=== PATIENT | male | born 1970 | race Caucasian/White ===

== ENCOUNTER 2021-02-16 16:33 | Emergency (ER) | payer OTHER ==
--- OUTSIDE RECORDS SUMMARY | 2021-02-16 16:37 | XMS REPORT | Continuity of Care Document ---
:1970 Author Organization [facility] t Address [address] [place] [address] [address] [place] [address] Care Team Providers Name Role Phone PURA Attending Clinician Unavailable MD Ibrahima NEVES Attending Clinician Unavailable [place] Attending Clinician Unavailable HENRY Attending Clinician Unavailable MD Ibrahima NEVES Admitting Clinician Unavailable Problems This patient has no known problems. Allergies, Adverse Reactions, Alerts This patient has no known allergies or adverse reactions. Medications This patient has no known medications. Procedures This patient has no known procedures. Encounters Start End Encounter Admission Attending Care Care Encounter Source Date/Time Date/Time Type Type Clinicians Facility Department ID 2021-02-16 2021-02-16 Outpatient [facility] [id number] [place] 00:00:00 00:00:[address] 2020-12-15 2020-12-15 [place] [id number] [place] 00:00:00 00:00:00 ANKUR [address] 2020-11-07 2020-11-07 [facility] [id number] [place] 00:00:00 00:00:00 ANKUR [address] 2020-11-07 2020-11-07 [place] [id number] [place] 00:00:00 00:00:00 ANKUR [address] 2020-10-04 2020-10-04 [facility] [id number] [place] 00:00:00 00:00:00 BROWN [address] 2020-09-21 2020-09-21 [facility] [id number] [place] 00:00:00 00:00:00 ANKUR [address] 2020-09-13 2020-09-13 Outpatient [place], [facility] [id number] [place] 00:00:00 00:00:00 ANKUR [address] 2020-06-28 2020-06-28 Outpatient [place], [facility] [id number] [place] 00:00:00 00:00:00 ANKUR [address] 2020-06-14 2020-06-14 Outpatient [place], [facility] [id number] [place] 00:00:00 00:00:00 ANKUR [address] 2020-06-07 2020-06-07 Outpatient [place], [facility] [id number] [place] 00:00:00 00:00:00 BROWN [address] 2020-05-09 2020-05-09 Outpatient [place], [facility] [id number] [place] 00:00:00 00:00:00 DEMETRI [address] 2020-05-04 2020-05-04 Outpatient [place], [facility] [id number] [place] 00:00:00 00:00:00 DEMETRI [address] 2020-04-07 2020-04-07 Outpatient BR[place], [facility] [id number] [place] 00:00:00 00:00:00 DEMETRI [address] 2020-03-28 2020-03-28 Outpatient BR[place], [facility] [id number] [place] 00:00:00 00:00:00 DEMETRI [address] 2020-03-28 2020-03-28 Outpatient BROWN, [facility] [id number] [place] 00:00:00 00:00:00 DEMETRI [address] 2020-03-16 2020-03-16 Outpatient [place], [facility] [id number] [place] 00:00:00 00:00:[address] ANKUR [address] 2020-03-04 2020-03-04 Outpatient BROWN, [facility] [id number] [place] 00:00:00 00:00:00 DEMETRI [address] 2020-03-04 2020-03-04 Outpatient [facility] [id number] [place] 00:00:00 00:00:[address] 2020-03-02 2020-03-02 Outpatient [place], [facility] [id number] [place] 00:00:00 00:00:00 ANKUR [address] 2020-02-01 2020-02-01 Outpatient [place], [facility] [id number] [place] 00:00:00 00:00:00 BROWN [address] 2019-10-03 2019-10-03 Outpatient [place], [facility] [id number] [place] 00:00:00 00:00:00 ANKUR [address] 2019-07-28 2019-07-28 Outpatient [place], [facility] [id number] [place] 00:00:00 00:00:00 BROWN [address] Results Test Description Test Time Test Comments Results Result Comments Source SARS-CoV-2 (COVID-19) RNA [Presence] in Respiratory sp ecimen by 2020-11-07 21:41:02 ITALIA with probe detection Test Item Value Reference Range Interpretation Comme nts SARS-CoV-2 (COVID-19) RNA [Presence] in Respiratory Not detected No t-Detected specimen by ITALIA with probe detection (test code = 57605-5) 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
[2021-02-16] MEDS ORDERED: LIDOCAINE 1% 20 ML MDV ONE (20:10)
[2021-02-16] MEDS ORDERED: TETANUS & DIPHTHERIA TOX,ADULT 0.5 ML VIAL ONE (20:11)
--- NOTE | 2021-02-16 20:30 | EDPHYS ---
Physician Documentation [facility] Name: Petar Nuñez Jr Age: 51 yrs Sex: Male : 1970 Arrival Date: 02/16/2021 Time: 16:37 Bed 11 Private MD: ED Physician Urbano Eduardo HPI: 02/17 01:26 This 51 yrs old Male presents to ER via Ambulatory with complaints of Thumb Laceration. kb 01:26 The patient has a laceration related to: cooking, from a knife, occurred at home, and kb there are no complicating factors. The injury was accidental. The laceration(s) is(are) located on the dorsal aspect of proximal phalanx of left thumb. Onset: The symptoms/episode began/occurred just prior to arrival. Associated signs and symptoms: The patient has no apparent associated signs or symptoms. The patient has not experienced similar symptoms in the past. The patient has not recently seen a physician. Pt reports he was cutting an orange and accidentally cut his thumb. Historical: - Allergies: 02/16 17:40 Erythromycin; ss - Immunization history:: Client reports receiving the 2nd dose of the Covid vaccine, Last tetanus immunization: unknown. - Social history:: Smoking status: Patient denies any tobacco usage or history of. ROS: 02/17 01:25 Constitutional: Negative for fever, chills, and weight loss. kb Skin: Positive for laceration(s), of the dorsal aspect of proximal phalanx of left thumb. All other systems are negative. Exam: 01:25 Constitutional: This is a well developed, well nourished patient who is awake, alert, kb and in no acute distress. Head/Face: Normocephalic, atraumatic. ENT: Moist Mucous membranes Respiratory: Respirations even and unlabored. No increased work of breathing. Talking in full sentences MS/ Extremity: Pulses equal, no cyanosis. Neurovascular intact. Full, normal range of motion. Neuro: Awake and alert, GCS 15, oriented to person, place, time, and situation. Moves all extremities. Normal gait. Psych: Awake, alert, with orientation to person, place and time. Behavior, mood, and affect are within normal limits. 01:25 Skin: injury, laceration(s), the wound is approximately 1.5 cm(s), of the dorsal aspect of proximal phalanx of left thumb, that can be described as clean, no foreign body, irregular, without bleeding. Vital Signs: 02/16 17:36 BP 137 / 94; Pulse 76; Resp 16; Temp 98.0(TE); Pulse Ox 99% on R/A; Weight 106.59 kg; ss Height 6 ft. 3 in. (190.50 cm); Pain 3/10; 17:36 Body Mass Index 29.37 (106.59 kg, 190.50 cm) ss Laceration: 20:29 Wound Repair of 1.5cm ( 0.6in ) subcutaneous laceration to dorsal aspect of proximal kb phalanx of left thumb. Irregularly shaped.. Skin/tissue flap noted.. Distal neuro/vascular/tendon intact. Anesthesia: Wound infiltrated with 1 mls of 1% lidocaine. Wound prep: Extensive cleansing with hibiclenz by me, Wound irrigation with saline by me. Skin closed with 3 5-0 Prolene using simple sutures and sterile technique. Patient tolerated well. MDM: 17:47 Patient medically screened. kb 20:29 Data reviewed: vital signs, nurses notes. Data interpreted: Pulse oximetry: on room air kb is 99 %. Interpretation: normal. Counseling: I had a detailed discussion with the patient and/or guardian regarding: the historical points, exam findings, and any diagnostic results supporting the discharge/admit diagnosis, the need for outpatient follow up, a family practitioner, to return to the emergency department if symptoms worsen or persist or if there are any questions or concerns that arise at home. 02/16 19:42 Order name: Dressing - Wound; Complete Time: 20:44 kb 02/16 19:42 Order name: Gloves, Sterile; Complete Time: 20:44 kb 02/16 19:42 Order name: Prolene, Sutures; Complete Time: 20:44 kb 02/16 19:42 Order name: Setup Suture Tray; Complete Time: 20:44 kb Administered Medications: 20:16 Drug: Tetanus-Diphtheria Toxoid Adult 0.5 ml {Prop Drawer: [employer]. Exp: lp1 07/08/2022. Lot #: [id number]. } Route: IM; Site: right deltoid; 20:40 Follow up: Response: No adverse reaction lp1 20:17 Drug: Lidocaine (1 %) 1 vials Volume: 5 ml; Route: Infiltration; lp1 Disposition Summary: 02/16/21 20:30 Discharge Ordered Location: Home kb Condition: Stable kb Diagnosis - Laceration without foreign body of left thumb without damage to nail kb Followup: kb - With: Emergency Department - When: As needed - Reason: Worsening of condition Followup: kb - With: Private Physician - When: 2 - 3 days - Reason: Recheck today's complaints, Continuance of care, Re-evaluation by your physician Discharge Instructions: - Discharge Summary Sheet kb - Laceration Care, Adult, Gaau-yx-Volm kb Forms: - Medication Reconciliation Form kb - Thank You Letter kb - Antibiotic Education kb - Prescription Opioid Use kb Addendum: 02/21/2021 13:12 Co-signature as Attending Physician, Urbano Eduardo MD I agree with the assessment and k dr plan of care. Signatures: Denita Perkins, SYSTEMS COORDINATOR-C SYSTEMS COORDINATOR-Ckb Urbano Eduardo MD MD [facility] Jerri Juarez, RN RN Martha Zimmer, RN RN lp1
--- NOTE | 2021-02-16 20:30 | ER ---
Nurse's Notes [facility] Name: Petar Nuñez Jr Age: 51 yrs Sex: Male : 1970 Arrival Date: 02/16/2021 Time: 16:37 Bed 11 Private MD: Diagnosis: Laceration without foreign body of left thumb without damage to nail Presentation: 02/16 17:36 Chief complaint: Patient states: Laceration to L thumb that occurred 1.5 hours ago. 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 Coronavirus screen: Client denies travel out of the [place] in the last 14 days. Ebola Screen: Patient denies exposure to infectious person. Patient denies travel to an Ebola-affected area in the 21 days before illness onset. Initial Sepsis Screen: Does the patient meet any 2 criteria? No. Patient's initial sepsis screen is negative. Does the patient have a suspected source of infection? No. Patient's initial sepsis screen is negative. Risk Assessment: Do you want to hurt yourself or someone else? Patient reports no desire to harm self or others. Onset of symptoms was February 16, 2021. 17:36 Method Of Arrival: Ambulatory ss 17:36 Acuity: RAVIN 4 ss Historical: - Allergies: 17:40 Erythromycin; ss - Immunization history:: Client reports receiving the 2nd dose of the Covid vaccine, Last tetanus immunization: unknown. - Social history:: Smoking status: Patient denies any tobacco usage or history of. Screenin:30 Abuse screen: Denies threats or abuse. Denies injuries from another. Nutritional lp1 screening: No deficits noted. Tuberculosis screening: No symptoms or risk factors identified. Fall Risk None identified. Assessment: 20:00 General: Appears in no apparent distress. Behavior is appropriate for age. Pain: lp1 Complains of pain in left thumb. Neuro: Level of Consciousness is awake, alert, obeys commands. Cardiovascular: Patient's skin is warm and dry. Respiratory: Respiratory effort is even, unlabored. Derm: Skin is pink, warm \T\ dry. Injury Description: Laceration sustained to dorsal aspect of distal phalanx of left thumb is clean, 0.5 to 2.5 cm long, not bleeding. Vital Signs: 17:36 BP 137 / 94; Pulse 76; Resp 16; Temp 98.0(TE); Pulse Ox 99% on R/A; Weight 106.59 kg; ss Height 6 ft. 3 in. (190.50 cm); Pain 3/10; 17:36 Body Mass Index 29.37 (106.59 kg, 190.50 cm) ED Course: 16:37 Patient arrived in ED. mr 17:40 Triage completed. ss 17:40 Arm band placed on right wrist. 17:47 Denita Perkins FNP-C [facility] kb 17:47 Urbano Eduardo MD is Attending Physician. kb 20:30 Patient has correct armband on for positive identification. lp1 20:30 No provider procedures requiring assistance completed. Patient did not have IV access lp1 during this emergency room visit. 20:44 Martha Zimmer, RN is Primary Nurse. 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 Exp: lp1 07/08/2022. Lot #: [id number]. } Route: IM; Site: right deltoid; 20:40 Follow up: Response: No adverse reaction lp1 20:17 Drug: Lidocaine (1 %) 1 vials Volume: 5 ml; Route: Infiltration; lp1 Outcome: 20:30 Discharge ordered by MD. kb 20:40 Discharged to home ambulatory. lp1 20:40 Condition: good 20:40 Discharge instructions given to patient, Instructed on discharge instructions, follow up and referral plans. wound care, Demonstrated understanding of instructions, follow-up care, wound care. 20:44 Patient left the ED. lp1 Signatures: Denita Perkins FNP-C FNP-Sylvia Niharika TurnerJerri champagne, RN RN Martha Zimmer, RN RN lp1
[2021-02-16 21:02] VITALS: BP 137/94; TEMP 98; O2SAT 99
== END 2021-02-16 20:44 | disposition home or self-care (01) ==
LOC: ER 16:33
PROC: 0JQK0ZZ Repair Left Hand Subcutaneous Tissue and Fascia, Open Approach (ICD-10-PCS; principal; 2021-02-16)
DX: S61.012A Laceration without foreign body of left thumb without damage to nail, initial encounter (principal); W26.0XXA Contact with knife, initial encounter; Y93.G3 Activity, cooking and baking; Y92.009 Unspecified place in unspecified non-institutional (private) residence as the place of occurrence of the external cause; Z23 Encounter for immunization; Z88.3 Allergy status to other anti-infective agents
CPT/HCPCS: 90471; 90714; 99283